=== PATIENT | female | born 1995 | race Two or more races ===

== ENCOUNTER 2022-06-08 09:43 | Emergency (ER) | payer MEDICAID | END 2022-06-08 11:18 | disposition home or self-care (01) | LOC: EDBD 09:43 → JP.ED 09:43 | DX: M94.0 Chondrocostal junction syndrome [Tietze] (principal); Z20.822 Contact with and (suspected) exposure to COVID-19 | CPT/HCPCS: 99284; U0002 ==

== ENCOUNTER 2023-12-09 08:43 | Emergency (ER) | payer SELFPAY ==
[2023-12-09 09:16] LABS: BASOPHILS PERCENT AUTO 0.2 % (0.1-1.3); EOSINOPHILS ABSOLUTE AUTO 0.04 K/uL (0.00-0.40); EOSINOPHILS PERCENT AUTO 0.8 % (0.0-5.4); HEMATOCRIT 37.1 % (34.3-46.0); IMMATURE GRAN PERCENT AUTO 0.2 % (0.0-0.7); LYMPHOCYTES ABSOLUTE AUTO 1.86 K/uL (0.8-3.3); LYMPHOCYTES PERCENT AUTO 35.2 % (11.4-47.7); MEAN CORPUSCULAR HGB CONC 32.3 g/dL (31.6-35.5); MEAN CORPUSCULAR VOLUME 83.4 fL (81.4-99.0); MONOCYTES ABSOLUTE AUTO 0.45 K/uL (0.20-0.90); MONOCYTES PERCENT AUTO 8.5 % (3.3-12.6); NEUTROPHILS ABSOLUTE AUTO 2.91 K/uL (1.0-7.6); NEUTROPHILS PERCENT AUTO 55.1 % (40.0-78.1); PLATELET COUNT,PLT 311 K/uL (130-375); RED BLOOD CELL COUNT 4.45 M/uL (3.77-5.24); WHITE BLOOD CELL COUNT,WBC 5.3 K/uL (3.2-11.0)
[2023-12-09 09:24] LABS: BASOPHILS ABSOLUTE AUTO 0.01 K/uL (0.00-0.10); IMMATURE GRAN ABSOLUTE AUTO 0.01 K/uL (0.00-0.23)
[2023-12-09 09:51] LABS: CORONAVIRUS COVID-19 NAA NEGATIVE (NEGATIVE); INFLUENZA A NAA POSITIVE (NEGATIVE); INFLUENZA B NAA NEGATIVE (NEGATIVE); RESPIRATORY SYNCYTIAL VIR NAA NEGATIVE (NEGATIVE)
== END 2023-12-09 10:51 | disposition home or self-care (01) ==
LOC: JP.ED 08:43
DX: J10.1 Influenza due to other identified influenza virus with other respiratory manifestations (principal)
CPT/HCPCS: 0241U; 36415; 85025; 87651; 99283

== ENCOUNTER 2024-07-15 01:21 | Emergency (ER) | payer SELFPAY ==
[2024-07-15] MEDS ORDERED: Sodium Chloride 0.9% 10 ML Syringe FLUSH PRN (02:18)
[2024-07-15 02:27] LABS: BASOPHILS ABSOLUTE AUTO 0.05 K/uL (0.00-0.10); BASOPHILS PERCENT AUTO 0.6 % (0.1-1.3); EOSINOPHILS ABSOLUTE AUTO 0.12 K/uL (0.00-0.40); EOSINOPHILS PERCENT AUTO 1.4 % (0.0-5.4); HEMATOCRIT 31.8 % (34.3-46.0); HEMOGLOBIN 10.7 g/dL (11.2-15.5); IMMATURE GRAN PERCENT AUTO 0.1 % (0.0-0.7); LYMPHOCYTES ABSOLUTE AUTO 1.67 K/uL (0.8-3.3); LYMPHOCYTES PERCENT AUTO 20.2 % (11.4-47.7); MEAN CORPUSCULAR HEMOGLOBIN 27.4 pg (31.6-35.5); MEAN CORPUSCULAR HGB CONC 33.6 g/dL (31.6-35.5); MEAN CORPUSCULAR VOLUME 81.5 fL (81.4-99.0); MONOCYTES PERCENT AUTO 8.5 % (3.3-12.6); NEUTROPHILS ABSOLUTE AUTO 5.73 K/uL (1.0-7.6); NEUTROPHILS PERCENT AUTO 69.2 % (40.0-78.1); PLATELET COUNT,PLT 259 K/uL (130-375); WHITE BLOOD CELL COUNT,WBC 8.3 K/uL (3.2-11.0)
[2024-07-15 02:28] LABS: IMMATURE GRAN ABSOLUTE AUTO 0.01 K/uL (0.00-0.23)
[2024-07-15 02:51] LABS: ALANINE AMINOTRANSFERASE,ALT 72 U/L (12-78); ALBUMIN 3.5 g/dL (3.4-5.0); ALKALINE PHOSPHATASE 80 U/L (46-116); ANION GAP 8.6 mmol/L (5.0-14.0); ASPARTATE AMNIOTRANSFERASE,AST 47 U/L (15-37); BILIRUBIN TOTAL 0.2 mg/dL (0.2-1.0); BLOOD UREA NITROGEN,BUN 9 mg/dL (7-18); CARBON DIOXIDE,CO2 27 mmol/L (21-32); CHLORIDE,CL 107 mmol/L (100-108); CREATININE 0.8 mg/dL (0.6-1.0); ESTIMATED GFR 102 mL/min (>60); GLUCOSE RANDOM 105 mg/dL (74-106); POTASSIUM,K 3.7 mmol/L (3.6-5.2); PROTEIN TOTAL,TP 7.1 g/dL (6.4-8.2); SODIUM,NA 143 mmol/L (140-148)
[2024-07-15 02:52] LABS: TROPONIN I HIGH SENSITIVITY < 4.0 pg/mL (<=60.3)
[2024-07-15] MEDS: Iopamidol 612 MG/ML 100 ML Bottle IV STA (03:13)
[2024-07-15] MEDS: Sodium Chloride 0.9% 80 ML IV STA (03:13)
[2024-07-15] MEDS: fentaNYL 100 MCG/2 ML SDV IVPUSH ONE (03:28)
[2024-07-15] MEDS: Ketorolac 30 MG/ML SDV IM ONE (03:37)
== END 2024-07-15 05:21 | disposition home or self-care (01) ==
LOC: JP.ED 01:21
DX: R10.11 Right upper quadrant pain (principal)
CPT/HCPCS: 36415; 74177; 80053; 83605; 83690; 84484; 84703; 85025; 96374; 99284; J3010; J3490; Q9967

== ENCOUNTER 2024-08-01 12:53 | Emergency (ER) | payer OTHER ==
[2024-08-01 13:48] LABS: BASOPHILS ABSOLUTE AUTO 0.04 K/uL (0.00-0.10); BASOPHILS PERCENT AUTO 0.6 % (0.1-1.3); EOSINOPHILS ABSOLUTE AUTO 0.05 K/uL (0.00-0.40); EOSINOPHILS PERCENT AUTO 0.8 % (0.0-5.4); HEMATOCRIT 32.6 % (34.3-46.0); IMMATURE GRAN PERCENT AUTO 0.3 % (0.0-0.7); LYMPHOCYTES ABSOLUTE AUTO 1.15 K/uL (0.8-3.3); LYMPHOCYTES PERCENT AUTO 18.2 % (11.4-47.7); MEAN CORPUSCULAR HEMOGLOBIN 28.1 pg (31.6-35.5); MEAN CORPUSCULAR HGB CONC 33.7 g/dL (31.6-35.5); MEAN CORPUSCULAR VOLUME 83.4 fL (81.4-99.0); MONOCYTES PERCENT AUTO 6.3 % (3.3-12.6); NEUTROPHILS ABSOLUTE AUTO 4.65 K/uL (1.0-7.6); NEUTROPHILS PERCENT AUTO 73.8 % (40.0-78.1); PLATELET COUNT,PLT 212 K/uL (130-375); RED BLOOD CELL COUNT 3.91 M/uL (3.77-5.24); WHITE BLOOD CELL COUNT,WBC 6.3 K/uL (3.2-11.0)
[2024-08-01 13:51] LABS: IMMATURE GRAN ABSOLUTE AUTO 0.02 K/uL (0.00-0.23)
[2024-08-01 14:06] LABS: APPEARANCE,URINE CLEAR (CLEAR); BILIRUBIN,URINE NEGATIVE (NEGATIVE); COLOR,URINE YELLOW (YELLOW); GLUCOSE,URINE NEGATIVE (NEGATIVE); KETONES,URINE NEGATIVE (NEGATIVE); LEUKOCYTE ESTERASE,URINE SMALL (NEGATIVE); NITRITE,URINE NEGATIVE (NEGATIVE); OCCULT BLOOD,URINE NEGATIVE (NEGATIVE); PROTEIN,URINE NEGATIVE (NEGATIVE); UROBILINOGEN,URINE 0.2 EU/dL (0.2-1.0)
[2024-08-01 14:07] LABS: ALANINE AMINOTRANSFERASE,ALT 322 U/L (12-78); ALBUMIN 3.5 g/dL (3.4-5.0); ALKALINE PHOSPHATASE 131 U/L (46-116); ASPARTATE AMNIOTRANSFERASE,AST 187 U/L (15-37); BILIRUBIN TOTAL 0.4 mg/dL (0.2-1.0); BLOOD UREA NITROGEN,BUN 4 mg/dL (7-18); CALCIUM 8.9 mg/dL (8.5-10.1); CARBON DIOXIDE,CO2 28 mmol/L (21-32); CHLORIDE,CL 109 mmol/L (100-108); CREATININE 0.8 mg/dL (0.6-1.0); EST CRCL DRUG DOSING (CG) 82.06 mL/min; ESTIMATED GFR 102 mL/min (>60); GLUCOSE RANDOM 97 mg/dL (74-106); POTASSIUM,K 3.7 mmol/L (3.6-5.2); SODIUM,NA 144 mmol/L (140-148)
[2024-08-01 14:12] LABS: ANION GAP 10.7 mmol/L (5.0-14.0)
[2024-08-01] MEDS: Ketorolac 30 MG/ML SDV IVPUSH ONE (14:15)
[2024-08-01 14:22] LABS: BACTERIA,URINE FEW; EPITHELIAL CELLS,URINE FEW; MUCUS,URINE RARE; RBC,URINE 0-5 (0-5)
[2024-08-01 14:23] LABS: AMORPHOUS SEDIMENT,URINE NOT SEEN
[2024-08-01] MEDS: Sodium Chloride 0.9% 10 ML Syringe FLUSH ONE (15:13)
[2024-08-01] MEDS: Sodium Chloride 0.9% 100 ML IV ONE (15:13)
[2024-08-01] MEDS: Iopamidol 612 MG/ML 100 ML Bottle IV ONE (15:13)
[2024-08-01] MEDS: Ondansetron 4 MG/2 ML SDV IVPUSH ONE (16:04)
== END 2024-08-01 17:09 | disposition home or self-care (01) ==
LOC: JP.ED 12:53
DX: K82.9 Disease of gallbladder, unspecified (principal); R10.84 Generalized abdominal pain; Z79.899 Other long term (current) drug therapy
CPT/HCPCS: 36415; 74177; 80053; 81001; 81025; 83690; 85025; 96374; 96375; 99284; J1885; J2405; J3490; Q9967

== ENCOUNTER 2024-08-20 06:16 | Day surgery (SDC) | payer OTHER ==
[2024-08-20] MEDS: Lactated Ringers 1,000 ML IV SCH (06:55)
[2024-08-20] MEDS ORDERED: Indocyanine Green 25 MG SDV ONE (06:57)
[2024-08-20] MEDS ORDERED: Sodium Chloride 0.9% 1,000 ML IV SCH (07:00)
[2024-08-20 07:08] LABS: HEMOGLOBIN 11.1 g/dL (11.2-15.5); MEAN CORPUSCULAR HEMOGLOBIN 28.2 pg (31.6-35.5); MEAN CORPUSCULAR HGB CONC 33.6 g/dL (31.6-35.5); MEAN CORPUSCULAR VOLUME 83.8 fL (81.4-99.0); RED BLOOD CELL COUNT 3.94 M/uL (3.77-5.24); WHITE BLOOD CELL COUNT,WBC 6.9 K/uL (3.2-11.0)
[2024-08-20] MEDS: Indocyanine Green 25 MG SDV IV ONE (07:09)
[2024-08-20] MEDS: metroNIDAZOLE/Normal Saline 500 MG in Premix Bag 1 BAG IV ONE (07:15)
[2024-08-20] MEDS ORDERED: Succinylcholine 200 MG/10 ML MDV ONE (07:20)
[2024-08-20] MEDS ORDERED: Propofol 200 MG/20 ML SDV ONE (07:20)
[2024-08-20] MEDS ORDERED: Neostigmine Methylsulfate 10 MG/10 ML MDV ONE (07:20)
[2024-08-20] MEDS ORDERED: Dexamethasone 4 MG/ML SDV ONE (07:20)
[2024-08-20] MEDS ORDERED: Rocuronium 50 MG/5 ML Vial ONE (07:20)
[2024-08-20] MEDS ORDERED: Glycopyrrolate 0.2 MG/ML 5 ML MDV ONE (07:20)
[2024-08-20] MEDS ORDERED: fentaNYL 250 MCG/5 ML SDV ONE ×2 (07:20→08:51)
[2024-08-20] MEDS ORDERED: Ondansetron 4 MG/2 ML SDV ONE (07:20)
[2024-08-20 07:28] LABS: A/G RATIO 1.1 (1.2-2.2); ALANINE AMINOTRANSFERASE,ALT 35 U/L (12-78); ALBUMIN 3.6 g/dL (3.4-5.0); ALKALINE PHOSPHATASE 93 U/L (46-116); ANION GAP 12.3 mmol/L (5.0-14.0); ASPARTATE AMNIOTRANSFERASE,AST 19 U/L (15-37); BILIRUBIN TOTAL 0.3 mg/dL (0.2-1.0); BLOOD UREA NITROGEN,BUN 6 mg/dL (7-18); CARBON DIOXIDE,CO2 26 mmol/L (21-32); CHLORIDE,CL 106 mmol/L (100-108); CREATININE 0.7 mg/dL (0.6-1.0); EST CRCL DRUG DOSING (CG) 93.79 mL/min; ESTIMATED GFR 120 mL/min (>60); GLUCOSE RANDOM 97 mg/dL (74-106); POTASSIUM,K 3.8 mmol/L (3.6-5.2); SODIUM,NA 144 mmol/L (140-148)
[2024-08-20] MEDS: ceFAZolin 2 GM in Premix Bag 1 BAG IV ONE (08:08)
[2024-08-20] MEDS: Ropivacaine 34 ML, dexAMETHasone 8 MG, EPINEPHrine 0.4 MG, Sodium Chloride 0.9% 43.6 ML NERVRT SCH (08:35)
[2024-08-20] MEDS: Lidocaine 1% with EPINEPHrine 1:100,000 50 ML MDV ONE (08:40)
[2024-08-20] MEDS: Bupivacaine 0.5% 50 ML MDV ONE (08:40)
[2024-08-20] MEDS ORDERED: Ketorolac 30 MG/ML SDV ONE (08:58)
[2024-08-20] MEDS: Acetaminophen/HYDROcodone 325-5 MG Tab PO PRN (13:01)
== END 2024-08-20 17:05 | disposition home or self-care (01) ==
LOC: JP.SDS 06:16
PROVIDERS: ATTEND Surgery
DX: K80.10 Calculus of gallbladder with chronic cholecystitis without obstruction (principal); K21.9 Gastro-esophageal reflux disease without esophagitis; Z79.899 Other long term (current) drug therapy
CPT/HCPCS: 00790; 36415; 47562; 80053; 81025; 85027; A9270; J0171; J0330; J0665; J0690; J1100; J1596; J1836; J1885; J2405; J2704; J2710; J2795; J3010; J3490; J7120; 88304

== ENCOUNTER 2025-04-03 06:29 | Day surgery (SDC) | payer MEDICAID ==
[2025-04-03] MEDS ORDERED: Midazolam 1 MG/ML 2 ML SDV ONE (07:15)
[2025-04-03] MEDS ORDERED: Propofol 200 MG/20 ML SDV ONE (07:15)
[2025-04-03] MEDS ORDERED: fentaNYL 100 MCG/2 ML SDV ONE (07:15)
[2025-04-03] MEDS: Lactated Ringers 1,000 ML IV SCH (07:46)
== END 2025-04-03 09:57 | disposition home or self-care (01) ==
LOC: JP.SDS 06:29
PROVIDERS: ATTEND Family Medicine
DX: K29.50 Unspecified chronic gastritis without bleeding (principal); K21.9 Gastro-esophageal reflux disease without esophagitis
CPT/HCPCS: 00731; 43239; 81025; 88305; J2250; J2704; J3010; J7120